=== PATIENT | female | born 1950 | race Caucasian/White ===

== ENCOUNTER 2019-10-31 19:21 | Emergency (ER) | payer OTHER, SELFPAY ==
--- NOTE | ~2019-10-31 | CT_ITS ---
EXAMINATION: CT abdomen pelvis w con DATE: 10/31/2019 20:28 INDICATION: Abdominal pain TECHNIQUE: Computed tomography (CT) of the abdomen and pelvis was performed with 100 mL Omnipaque-350 intravenous contrast. Automated exposure control and iterative reconstruction technique were employe d. The dose-length product was 1464.59 mGy-cm. COMPARISON: None FINDINGS: Mild lingular atelectasis. Heart size is normal. No pericardial or pleural effusion. Cholecystectomy clips at the gallbladder fossa. Diffuse hepatic steatosis. Spleen, pancreas and bilateral adrenal gla nds are normal. Subcentimeter low-attenuation bilateral renal cysts. There is moderate colonic divert iculosis with a sigmoid predominance. There is no adjacent inflammatory change to suggest diverticul itis. No abnormal bowel wall thickening or obstruction. Appendix is normal. 8.0 x 7.4 x 4.4 cm suprau mbilical ventral hernia. 2.5 cm diameter orifice which contains fat and a small amount of ascites. Th ere is stranding in the fat within the hernia sac as well as in the adjacent small bowel mesentery. B ladder is normal. The uterus is not identified and has likely been surgically resected. No pathologic ally enlarged abdominal or pelvic lymphadenopathy. Mild thoracolumbar spondylosis. There are bridging osteophytes at multiple levels in the spine, consistent with diffuse idiopathic skeletal hyperostosi s (DISH). IMPRESSION: 1. Inflammatory stranding in the fat within and deep to a supraumbilical ventral hernia. 2. Moderate diverticulosis. 3. Diffuse hepatic steatosis. Reviewed, dictated and finalized at location A. IMPRESSION: 1. Inflammatory stranding in the fat within and deep to a supraumbilical ventra l hernia. 2. Moderate diverticulosis. 3. Diffuse hepatic steatosis.
[2019-10-31 19:23] VITALS: BP 153/87; PULSE 89; RESP 20; TEMP 36.6; O2SAT 99
--- NOTE | 2019-10-31 19:33 | ED.ABDPAIN ---
HPI - Abdominal Pain General Chief Complaint: Abdominal Pain Stated Complaint: abd pain/from urgent care Time Seen by Provider: 10/31/19 19:28 Source: RN notes reviewed History of Present Illness HPI narrative: Patient presents emergency department from home for abdominal pain. Patient states that pain began approximately 6 days ago and is intermittent pain is located in right upper quadrant does not radiate described as a pressure associated with nausea and vomiting. Patient denies any fevers or chills chest pain shortness of breath diarrhea or any other symptoms states she took Tylenol approximately 2 hours ago for the pain patient states she does have a history of previous cholecystectomy Related Data Allergies Allergy/AdvReac Type Severity Reaction Status Date / Time No Known Allergies Allergy Verified 10/31/19 22:23 Review of Systems Review of Systems: Narrative: Gen.: Denies fevers or chills ENT: Denies congestion Respiratory: Denies shortness of breath or cough CV: Denies chest pain or palpitations GI: See HPI denies burning, urgency, frequency or hematuria Musculoskeletal: Denies back pain or muscle pain Neuro: Denies numbness, tingling, weakness or focal weakness Skin: Denies rash Except as documented, all other systems reviewed and negative [facility] Surgical History Surgical History (Updated 10/31/19 @ 19:34 by Damien Ryan DO) Hx of cholecystectomy Social History Social History (Updated 10/31/19 @ 19:34 by Damien Ryan DO) Smoking status: Never smoker Gender identity (if verbalized by the patient): Female Exam Narrative: Exam Narrative: APPEARANCE: No acute distress, nontoxic, resting in bed HEENT: Normocephalic, atraumatic, OMM RESPIRATORY: No respiratory distress, clear to auscultation bilaterally with no rhonchi wheezing or rales CARDIOVASCULAR: RRR s murmur ABDOMINAL: Soft, nondistended, tender palpation in epigastric and right upper quadrant no tenderness right lower quadrant left lower quadrant left upper quadrant no rebound or guarding small ventral hernia nontender MUSCULOSKELETAl: Moves all extremities. No clubbing, cyanosis or edema. NEURO: Awake and alert. Following commands, speech normal, no focal deficits SKIN:: Warm, dry. Normal Color PSYCHIATRIC: Normal affect/mood Course Course Emergency Course: Discussed with Dr. Nix results of the CT scan. States the mild fat stranding can be from irritation no acute intervention and may follow-up as outpatient Patient states that they are feeling much better at this time. States abdominal pain has has improved. Repeat abdomen exam soft with no surgical abdomen present discussed need for follow-up with primary care physician, reasons to return to the emergency department in proper use of medication. Patient understands and agrees to current treatment plan Vital Signs Vital signs: Vital Signs Temperature 97.8 F 10/31/19 19:23 Pulse Rate 89 10/31/19 19:23 Respiratory Rate 20 10/31/19 19:23 Blood Pressure 153/87 H 10/31/19 19:23 Pulse Oximetry 99 10/31/19 19:23 Temperature 97.8 F 10/31/19 19:23 Pulse Rate 89 10/31/19 19:23 Respiratory Rate 20 10/31/19 19:23 Blood Pressure 153/87 H 10/31/19 19:23 Pulse Oximetry 99 10/31/19 19:23 MDM - Abdominal Pain Lab Data Result diagrams: 10/31/19 20:02 10/31/19 20:02 Labs: Lab Results 10/31/19 10/31/19 10/31/19 Range/Units 20:01 20:02 20:02 WBC 17.4 H (4.5-10.0) K/mm3 RBC 5.14 (4.2-5.4) M/mm3 Hgb 14.3 (12.0-15.0) g/dL Hct 45.7 (37.0-47.0) % MCV 88.9 (80-100) fl MCH 27.8 (26-34) pg MCHC 31.3 L (32-36) g/dl RDW 13.6 (11.5-14.5) % Plt Count 232 (150-375) k/mm3 MPV 14.3 H (7.4-10.4) fl Immature Gran % (Auto) 0.7 H (0-0.5) % Neut % (Auto) 85.6 H (45.5-73.1) % Lymph % (Auto) 6.4 L (18.3-44.2) % Holmes % (Auto) 6.9 (2.6-8.5) % Eos % (Auto) 0.1 (0-4.
[2019-10-31 20:15] LABS: Basophils Absolute Auto 0.1 K/mm3 (0.0-0.1); Basophils Percent Auto 0.3 % (0.2-1.2); Eosinophils Percent Auto 0.1 % (0-4.4); Hematocrit 45.7 % (37.0-47.0); Hemoglobin 14.3 g/dL (12.0-15.0); Immature Granulocyte Absolute 0.12 K/mm3 (0.00-0.031); Immature Granulocyte Percent A 0.7 % (0-0.5); Immature Platelet Fraction Pct 17.1 % (0.9-11.2); Lymphocytes Absolute Auto 1.12 K/mm3 (0.9-3.2); Lymphocytes Percent Auto 6.4 % (18.3-44.2); Mean Corpuscular HGB Conc 31.3 g/dl (32-36); Mean Corpuscular Hemoglobin 27.8 pg (26-34); Mean Corpuscular Volume 88.9 fl (80-100); Mean Platelet Volume 14.3 fl (7.4-10.4); Monocytes Absolute Auto 1.2 K/mm3 (0.1-0.6); Monocytes Percent Auto 6.9 % (2.6-8.5); Neutrophils Absolute Auto 14.9 K/mm3 (1.3-6.7); Neutrophils Percent Auto 85.6 % (45.5-73.1); Platelet Count Result 232 k/mm3 (150-375); Red Blood Count 5.14 M/mm3 (4.2-5.4); Red Cell Distribution Width 13.6 % (11.5-14.5); White Blood Count 17.4 K/mm3 (4.5-10.0)
[2019-10-31 20:18] LABS: Add Urine Microscopic? YES; Appearance Urine Cloudy (Clear); Bacteria Urine 2+ /hpf; Bilirubin Urine Negative (Negative); Blood Urine Negative (Negative); Color Urine Yellow (Yellow); Glucose Urine UA Negative (Negative); Ketones Urine Negative (Negative); Leukocyte Esterase Ur Trace LEU/UL (Negative); Mucus Urine Moderate /lpf; Nitrate Urine Positive (Negative); Protein Urine Negative (Negative); RBC Urine 0-2 /hpf (0-2); Specific Grav Ur 1.026 (1.001-1.035); Squamous Epithelial Cell Urine Few /hpf (Few); Urobilinogen Urine Negative mg/dL (<2.0)
[2019-10-31 20:20] LABS: Alanine Aminotransferase 19 U/L (4-35); Albumin Level 4.4 g/dL (3.5-5.1); Alkaline Phosphatase 72 U/L (38-126); Aspartate Amino Transferase 24 U/L (14-36); Bilirubin,Total 0.4 mg/dL (0.2-1.3); Blood Urea Nitrogen 23 mg/dL (7-17); Calcium 9.2 mg/dL (8.4-10.2); Carbon Dioxide 31 mmol/L (22-30); Chloride 102 mmol/L (98-107); Estimated Glomerular Filt Rate > 60; Glucose 129 mg/dL (65-105); Lipase 38 U/L (23-300); Potassium 4.2 mmol/L (3.4-5.0); Sodium 139 mmol/L (137-145)
[2019-10-31] MEDS: ONDANSETRON INJ 4 MG/2 ML VIAL IV PUSH (20:51)
[2019-10-31] MEDS: LACTATED RINGERS 1,000 ML 999 ML IV CONT (20:53)
[2019-10-31 22:00] LABS: Lactic Acid Reflex 1.2 mmol/L (0.7-2.1)
[2019-10-31 23:43] VITALS: BP 175/86; PULSE 92; RESP 18; O2SAT 98
[2019-11-01 10:20] LABS: Estimated Glomerular Filt Rate > 60
== END 2019-10-31 23:46 | disposition home or self-care (01) ==
PROVIDERS: Emergency Medicine; Emergency Provider Emergency Medicine
DX: N39.0 Urinary tract infection, site not specified (principal); K43.9 Ventral hernia without obstruction or gangrene; K57.90 Diverticulosis of intestine, part unspecified, without perforation or abscess without bleeding; K76.0 Fatty (change of) liver, not elsewhere classified
CPT/HCPCS: 36415; 74177; 80053; 81001; 83605; 83690; 85025; 85055; 87040; 87086; 96361; 96365; 96375; 99284; J0696; J2405; J7120; Q9967

== ENCOUNTER 2021-07-17 17:24 | Emergency (ER) | payer OTHER, SELFPAY ==
[2021-07-17 17:36] VITALS: BP 144/91; PULSE 110; RESP 18; TEMP 36.8; O2SAT 98
--- NOTE | 2021-07-17 18:34 | ED.GENADULT ---
HPI - General Adult General Chief complaint: Upper Respiratory Infection Stated complaint: Sore Throat Source: patient Mode of arrival: ambulatory Limitations: no limitations History of Present Illness HPI narrative: Patient presents for evaluation of sinus congestion, drainage and headache since Friday. She states that her drainage is clear in appearance. She denies any fever, chills, nausea, vomiting, chest pain, shortness of breath, cough, diarrhea, body aches, otalgia. She has tried taking some Benadryl and allergy medication for symptoms without considerable improvement thereafter. Her had similar symptoms and received a prescription for antibiotics. She does not smoke. She has never had COVID. She has received COVID vaccination. She also received a flu shot this year. Related Data Home Medications Medication Instructions Recorded Confirmed atorvastatin 10 mg PO DAILY 07/17/21 07/17/21 lisinopril-hydrochlorothiazide 1 tablet PO DAILY 07/17/21 07/17/21 sertraline 50 mg PO DAILY 07/17/21 07/17/21 Allergies Allergy/AdvReac Type Severity Reaction Status Date / Time No Known Allergies Allergy Verified 07/17/21 17:36 Review of Systems Review of Systems: CONSTITUTIONAL: Denies fever, chills, or sweats. EYES: Denies visual changes, redness, or discharge. ENT: Reports sinus congestion and clear rhinorrhea. Denies sore throat, or otalgia. CARDIOVASCULAR: Denies chest pain, palpitations, or edema. RESPIRATORY: Denies cough or dyspnea. GASTROINTESTINAL: Denies abdominal pain, nausea, vomiting, or diarrhea. GENITOURINARY: Denies dysuria or hematuria. SKIN: Denies rash or itching. MUSCULOSKELETAL: Denies back pain, joint pain, or myalgia. NEUROLOGIC: Reports headache. Denies numbness, dizziness, or weakness. PSYCHIATRIC: Denies anxiety or depression. [facility] Past Medical History Medical History Anxiety Depression Hyperlipidemia Hypertension Surgical History Surgical History History of section History of hysterectomy Hx of cholecystectomy Family History Family History Mother Heart disease Social History Social History (Updated 07/17/21 @ 18:39 by Malachi Marion, [facility], ) Smoking status: Never smoker Alcohol intake: never Substance use: never Living arrangements: with family Gender identity (if verbalized by the patient): Female Sexual Orientation (if Verbalized by the Patient): Straight or Heterosexual Spiritual care concerns: No Exam Narrative: GENERAL: Well-appearing, well-nourished, and in no acute distress. HEAD: Normocephalic, atraumatic. EYES: PERRLA and EOMI. ENT: Nares clear, no rhinorrhea or epistaxis. Mucous membranes moist. Oropharynx without tonsillar hypertrophy exudate or other lesions. Bilateral TMs pearly callahan nonbulging NECK: Supple. No adenopathy or masses. No carotid bruits or JVD CHEST: Clear to auscultation. No respiratory distress. No wheezes rales or rhonchi HEART: Regular rate and rhythm. No murmur heard. Normal peripheral pulses. ABDOMEN: Soft, nontender, nondistended, normal active bowel sounds. EXTREMITIES: Normal range of motion. No edema. SKIN: Warm, dry, no rash. NEURO: No focal deficits. Alert and oriented x3. PSYCH: Normal mood and affect. Course Course Emergency Course: This is a 71-year-old woman that presented with complaints of sinus congestion, clear rhinorrhea and headache. Covid and strep were negative. She has no cough warranting chest x-ray. Exam is consistent with viral URI. Phenylephrine may help. Monitor BP on medication. Follow up outpatient for further evaluation and treatment and return for worsening symptoms. Pt in agreement with plan of care Level of Care: Express Care Visit Vital Signs Vital signs: Vital Signs Temperature 36.
== END 2021-07-17 18:35 | disposition home or self-care (01) ==
PROVIDERS: Emergency Provider Nurse Practitioner; PCP Family Medicine
DX: J06.9 Acute upper respiratory infection, unspecified (principal); Z20.822 Contact with and (suspected) exposure to COVID-19; F41.9 Anxiety disorder, unspecified; F32.A Depression, unspecified; E78.5 Hyperlipidemia, unspecified; I10 Essential (primary) hypertension
CPT/HCPCS: 87081; 87426; 87880; 99213; C9803; G0463

== ENCOUNTER 2023-07-05 15:03 | Emergency (ER) | payer OTHER, SELFPAY ==
[2023-07-05 15:15] VITALS: BP 126/61; PULSE 93; RESP 20; TEMP 37.5; O2SAT 100
--- NOTE | 2023-07-05 15:32 | ED.GENADULT ---
HPI - General Adult General Chief complaint: Upper Respiratory Infection Stated complaint: Sinus Time Seen by Provider: 07/05/23 15:32 Source: patient Mode of arrival: ambulatory Limitations: no limitations History of Present Illness HPI narrative: 73-year-old female patient presents to the [facility] with complaints of cold symptoms that started approximately 4 days ago. Patient states she has had chills, congestion, runny nose sore throat. Patient states she has been taking [id number] DayQuil and NyQuil as well as Zyrtec D. Patient states that has helped her symptoms. Any fevers, body aches. Denies any chest pain or shortness of breath or coughing. Denies any abdominal pain, nausea, vomiting or diarrhea. Related Data Home Medications Medication Instructions Recorded Confirmed atorvastatin 10 mg tablet 10 mg PO DAILY 07/17/21 07/05/23 lisinopril 20 1 tablet PO DAILY 07/17/21 07/05/23 mg-hydrochlorothiazide 25 mg tablet sertraline 50 mg tablet 50 mg PO DAILY 07/17/21 07/05/23 Allergies Allergy/AdvReac Type Severity Reaction Status Date / Time No Known Allergies Allergy Verified 07/05/23 15:07 Review of Systems Review of Systems: CONSTITUTIONAL: Denies fever, positive chills, denies sweats. EYES: Denies visual changes, redness, or discharge. ENT: Positive rhinorrhea, congestion, sore throat, denies otalgia. CARDIOVASCULAR: Denies chest pain, palpitations, or edema. RESPIRATORY: Denies cough or dyspnea. GASTROINTESTINAL: Denies abdominal pain, nausea, vomiting, or diarrhea. GENITOURINARY: Denies dysuria or hematuria. SKIN: Denies rash or itching. MUSCULOSKELETAL: Denies back pain, joint pain, or myalgia. NEUROLOGIC: Denies headache, numbness, or weakness. PSYCHIATRIC: Denies anxiety or depression. [facility] Past Medical History Medical History Anxiety Depression Hyperlipidemia Hypertension Surgical History Surgical History History of section History of hysterectomy Hx of cholecystectomy Family History Family History Mother Heart disease Social History Social History Smoking status: Never smoker Alcohol intake: never Substance use: never Living arrangements: with family Gender identity (if verbalized by the patient): Female Sexual Orientation (if Verbalized by the Patient): Straight or Heterosexual Spiritual care concerns: No Comments At the time of my signature I agree with nursing past medical history, surgical, social, and family history. There is no relevant family history pertinent to the presenting complaint. Exam Narrative: GENERAL: Well-appearing, well-nourished, and in no acute distress. HEAD: Normocephalic, atraumatic. EYES: PERRLA and EOMI. ENT: Nares with erythema edema noted bilaterally, no rhinorrhea or epistaxis. Mucous membranes moist. Posterior pharynx with erythema but no tonsillar enlargement, no exudates or lesions present. Bilateral TMs are clear no erythema foreign bodies canal. NECK: Supple. No lymphadenopathy CHEST: Clear to auscultation. No respiratory distress. HEART: Regular rate and rhythm. No murmur heard. Normal peripheral pulses. ABDOMEN: Soft, nontender, nondistended, normal active bowel sounds. EXTREMITIES: Normal range of motion. No edema. SKIN: Warm, dry, no rash. NEURO: No focal deficits. Alert and oriented x3. Course Course Level of Care: Express Care Visit Vital Signs Vital signs: Vital Signs Temperature 37.5 C 07/05/23 15:15 Pulse Rate 93 07/05/23 15:15 Respiratory Rate 20 07/05/23 15:15 Blood Pressure 126/61 07/05/23 15:15 Pulse Oximetry 100 07/05/23 15:15 Oxygen Delivery Room Air 07/05/23 15:15 Temperature 37.5 C 07/05/23 15:15 Pulse Rate 93 07/05/23 15:15
== END 2023-07-05 15:55 | disposition home or self-care (01) ==
PROVIDERS: Emergency Provider Nurse Practitioner Family; PCP Family Medicine
DX: J06.9 Acute upper respiratory infection, unspecified (principal); Z20.822 Contact with and (suspected) exposure to COVID-19; E78.5 Hyperlipidemia, unspecified; I10 Essential (primary) hypertension; F41.9 Anxiety disorder, unspecified; F32.A Depression, unspecified
CPT/HCPCS: 87081; 87426; 87804; 87880; 99213; G0463